=== PATIENT | male | born 1950 | race Caucasian/White ===

== ENCOUNTER 2021-06-02 10:03 | Emergency (ER) | payer MEDICARE, BC ==
[2021-06-02] MEDS ORDERED: Lidocaine 1% with EPINEPHrine 1:100,000 50 ML MDV SUBCUT STA (10:55)
[2021-06-02] MEDS ORDERED: Bacitracin Oint 1 GM U/D Packet TOP ONE (10:55)
--- NOTE | 2021-06-02 11:13 | EDM.PDOC ---
ED HPI GENERAL MEDICAL PROBLEM - General Chief Complaint: General Stated Complaint: NAIL GUN IN LEFT LEG Time Seen by Provider: 06/02/21 10:59 Source of Information: Reports: Patient, RN Notes Reviewed History Limitations: Reports: No Limitations - History of Present Illness INITIAL COMMENTS - FREE TEXT/NARRATIVE: 70-year-old gentleman presents emergency department today with complaint of jenna nail in his left knee, he states his tetanus was a couple years ago, the jenna nail does have barbs on it Left Knee Pain Score (Numeric/FACES): 3 - Related Data Allergies Allergy/AdvReac Type Severity Reaction Status Date / Time No Known Allergies Allergy Verified 06/02/21 10:31 Home Meds: Home Meds Aspirin 81 mg PO DAILY 06/02/21 [History] amLODIPine [Norvasc] 5 mg PO DAILY 06/02/21 [History] atorvaSTATin [Lipitor] 10 mg PO DAILY 06/02/21 [History] hydroCHLOROthiazide [Hydrochlorothiazide] 25 mg PO DAILY 06/02/21 [History] Past Medical History Cardiovascular History: Reports: High Cholesterol, Hypertension Social & Family History - Tobacco Use Tobacco Use Status *Q: Never Tobacco User - Recreational Drug Use Recreational Drug Use: No ED ROS GENERAL - Review of Systems Review Of Systems: See Below Skin: Reports: Wound ED EXAM, GENERAL - Physical Exam Exam: See Below Free Text/Narrative:: Examination of the knee I do appreciate a jenna nail that is just superior to the patella, after examination of the x-rays shows the jenna nail did not go into the knee and is just in soft tissue. The nail was removed manually a #15 blade was used to create a 2 mm incision and dilate the puncture wound the barbs were then slowly teased out and the nail was removed, bacitracin placed puncture wound Course - Vital Signs Last Recorded V/S: Last Vital Signs Temp 97.2 F 06/02/21 10:29 Pulse 81 06/02/21 10:29 Resp 18 06/02/21 10:29 BP 134/72 06/02/21 10:29 Pulse Ox 96 06/02/21 10:29 - Orders/Labs/Meds Orders: Active Orders 24 hr Category Date Time Status Knee 1V or 2V Lt [CR] Stat Exams 06/02/21 10:38 Ordered Meds: Medications Discontinued Medications Generic Name Dose Route Start Last Admin Trade Name Freq PRN Reason Stop Dose Admin Bacitracin 1 dose 06/02/21 10:55 Bacitracin Oint 1 Gm U/D Packet TOP 06/02/21 10:56 ONETIME ONE Lidocaine/Epinephrine 20 ml 06/02/21 10:55 Lidocaine 1% With Epinephrine 1:100,000 50 Ml Mdv SUBCUT 06/02/21 10:56 NOW STA Departure - Departure Time of Disposition: 11:14 Disposition: Home, Self-Care 01 Condition: Fair Clinical Impression: Foreign body of left knee - Discharge Information Instructions: Skin Foreign Body Referrals: PCP,None [Primary Care Provider] - Additional Instructions: Follow-up with primary care as needed call or return to the emergency department worsening of symptoms Sepsis Event Note (ED) - Evaluation Sepsis Screening Result: No Definite Risk - Focused Exam Vital Signs: Vital Signs Temp Pulse Resp BP Pulse Ox 06/02/21 10:29 97.2 F 81 18 134/72 96 - My Orders Last 24 Hours: My Active Orders 06/02/21 10:38 Knee 1V or 2V Lt [CR] Stat - Assessment/Plan Last 24 Hours: My Active Orders 06/02/21 10:38 Knee 1V or 2V Lt [CR] Stat Plan: Assessment Acuity = acute Site and laterality = puncture wound left knee Etiology = jenna nail Manifestations = none Location of injury = Home Lab values = x-ray shows that the nail is in soft tissue only no bone involvement official read radiologist pending Plan Tetanus is up-to-date follow-up primary care as needed This note was dictated using [employer] voice recognition software please call with any questions on syntax or grammar.
--- NOTE | 2021-06-02 11:34 | CR ---
Knee 1V or 2V Lt CLINICAL HISTORY: Nail in knee FINDINGS: There is a jenna nail in the anterior knee soft tissues. The tip abuts the quadriceps tendon. No acute fracture or dislocation is noted. There are no osseous lesions. There is patellar spurring. Impression: Nail in the soft tissues abutting the quadriceps tendon
== END 2021-06-02 11:19 | disposition home or self-care (01) ==
LOC: JP.ED 10:03
DX: S81.042A Puncture wound with foreign body, left knee, initial encounter (principal); I10 Essential (primary) hypertension; E78.00 Pure hypercholesterolemia, unspecified; Z79.82 Long term (current) use of aspirin; Z79.899 Other long term (current) drug therapy; X58.XXXA Exposure to other specified factors, initial encounter
CPT/HCPCS: 10120; 73560-26-LT; 73560-LT; 99283-25

== ENCOUNTER 2024-04-05 18:16 | Emergency (ER) | payer MEDICARE, BC | END 2024-04-05 19:45 | disposition home or self-care (01) | LOC: JP.ED 18:16 | DX: L03.115 Cellulitis of right lower limb (principal); I10 Essential (primary) hypertension; E78.00 Pure hypercholesterolemia, unspecified; E11.9 Type 2 diabetes mellitus without complications; Z79.84 Long term (current) use of oral hypoglycemic drugs; Z79.82 Long term (current) use of aspirin; Z79.899 Other long term (current) drug therapy | CPT/HCPCS: 99283 ==